=== PATIENT | male | born 1935 | race Caucasian/White ===

== ENCOUNTER 2016-08-29 18:01 | Observation (INO) | payer MEDICARE, BC, OTHER ==
--- NOTE | ~2016-08-29 | HP ---
History And Physical [place] [id number] [facility] [place]. [address] NAME: GUILLERMINA MOON : 37 STATUS : ADM Rob PAT#: [id number] AGE: 81 ADM/REG DATE : 08/29/16 MR#: [id number] REPORT SERV DATE: 08/30/16 DICTATED BY: ENRIQUE TAVERAS DATE: 08/29/16 REPORT STATUS : Draft TRANSCRIBED BY: MODL DATE: 08/29/16 DATE OF ADMISSION: 08/29/2016 CHIEF COMPLAINT: An 81-year-old male presenting with chest pain. HISTORY OF PRESENT ILLNESS: The patient's history was obtained through careful interview with the patient, , and daughter, coupled with review of [facility] medical records. For about three days now the patient has had new onset chest pain, although he has had chronic rare intermittent chest discomfort for which he takes nitroglycerin. This chest pain was more severe than usual. It is described in the middle of his chest, radiating to the back of his shoulders bilaterally and causing a soreness in his left arm as well. He describes the quality as a heaviness as if someone is sitting on his chest, a nine and a half out of 10 severity at its worse. It was not relieved by nitroglycerin prompting him and the family to come into the hospital. He has had no shortness of breath or nausea or vomiting today, but he has suffered some nausea on and off for about three weeks now. Approximately 10 days ago, the patient had developed increasing cough and was placed on outpatient Levaquin for a week. He completed this medication on 08/27/2016. He feels as if the cough has been gradually improving and now is productive of a slight clear sputum. He has had some night sweats, cold sweats, but no fevers or chills. Over the last few weeks, he has had some slight ankle edema, some dyspnea on exertion, orthopnea, paroxysmal nocturnal dyspnea, but none of these seem to be very debilitating. He has noticed some lightheadedness, dizziness. REVIEW OF SYSTEMS: Otherwise, a 14-point review of systems was obtained and was negative. PAST MEDICAL HISTORY: 1. COPD. 2. 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 3. Parkinson disease. 4. Dementia. 5. Coronary artery disease with a catheterization of the heart in 2001 showing moderate disease unamendable to percutaneous intervention and then had a negative stress test in 09/2010. 6. DVT. 7. Mediastinal lymphadenopathy. 8. Elevated cholesterol. PAST SURGICAL HISTORY: History And Physical [address] [address] NAME: GUILLERMINA MOON : 37 STATUS : ADM Rob PAT#: [id number] AGE: 81 ADM/REG DATE : 08/29/16 MR#: [id number] REPORT SERV DATE: 08/30/16 DICTATED BY: ERNIQUE TAVERAS DATE: 08/29/16 REPORT STATUS : Draft TRANSCRIBED BY: RICKY DATE: 08/29/16 1. Hemorrhoidectomy. 2. Left carotid endarterectomy, 2013. ALLERGIES: NO KNOWN DRUG ALLERGIES. SOCIAL HISTORY: Quit smoking in 2000. No alcohol abuse. He is . Lives in [place], [place]. Has one daughter who lives locally. He ambulates with a cane or a walker. He is retired working at an [employer] and also at a [employer] FAMILY HISTORY: Coronary artery disease. CURRENT MEDICATIONS: Include Tylenol, albuterol, atenolol 12.5 mg as needed, Sinemet one tablet p.o. t.i.d., Klonopin 0.5 mg p.o. q.h.s., vitamin B12, Lexapro 10 mg p.o. daily, Flonase, Breo Ellipta inhaled every morning, Mevacor 40 mg p.o. daily, midodrine 5 mg p.o. t.i.d., milk of magnesia, Singulair 10 mg p.o. q.h.s., eye drops, nitroglycerin p.r.n., Prilosec 20 mg p.o. daily, Seroquel 100 mg p.o. daily, nasal spray, Incruse Ellipta inhaled every morning, Coumadin 4 mg at bedtime. PHYSICAL EXAMINATION: VITAL SIGNS: Temperature 98.2, pulse 58, blood pressure 123/65, respiratory rate 24, O2 saturation 97% on room air. GENERAL: A pleasant, cooperative male. No evidence of distress at this time. His chest pain is resolved. HEENT: Pupils equal, round, and reactive to light. No conjunctival pallor. No scleral icterus. Nares are patent. Oropharynx is clear of obstruction. Moist mucous membranes. NECK: Trachea midline. No thyromegaly. LYMPH: No cervical lymphadenopathy. No supraclavicular lymphadenopathy. RESPIRATORY: The patient does have some crackles at the base of his lungs. It is difficult to determine if these are more wet or dry or if they are more consistent with atelectasis versus another pulmonary condition. There are no wheezes, no upper respiratory rhonchi. The patient has a slightly labored respiratory effort it seems. CARDIOVASCULAR: Bradycardic, regular rhythm. No murmurs, rubs, or gallops. The patient has only minimal pitting edema around his ankles in the pedal aspect of his feet bilaterally and symmetrically. ABDOMEN: Soft, nontender, nondistended. Normal bowel sounds auscultated throughout. No hepatosplenomegaly. DERMATOLOGICAL: Warm and dry extremities. No pallor, no cyanosis. PSYCHIATRIC: Normal affect. Good mood. Alert and oriented x3. LABORATORY DATA: INR 2.4, troponin negative. White blood cell count 11.1, hemoglobin 12, hematocrit 37, platelets 301. Sodium 139, potassium 4.7, chloride 104, bicarb 29, BUN 13, creatinine 1.05, glucose 150. STUDIES: 1. Chest x-ray by my own evaluation shows chronic left pleural reaction, chronic fullness of the mediastinum, flattening of the diaphragms consistent with COPD, but nothing acute seems apparent. History And Physical [address] [address] NAME: GUILLERMINA MOON : 37 STATUS : ADM Rob PAT#: [id number] AGE: 81 ADM/REG DATE : 08/29/16 MR#: [id number] REPORT SERV DATE: 08/30/16 DICTATED BY: ENRIQUE TAVERAS DATE: 08/29/16 REPORT STATUS : Draft TRANSCRIBED BY: MODL DATE: 08/29/16 2. EKG by my own evaluation shows sinus bradycardia. ASSESSMENT AND PLAN: 1. Chest pain evaluation. Check a nuclear cardiac stress test. Check an echocardiogram. History of catheterization of the heart in 2001 with moderate disease unamendable to stent placement with a negative stress test in 2010 to follow that up. The patient has therapeutic INR, on Coumadin. Add baby aspirin. 2. Abnormal chest x-ray and chest exam. Check a CT scan of the chest without contrast. The patient has persistent cough. Check brain natriuretic peptide. 3. Parkinson's disease with dementia. 4. Chronic dysphagia. Check a swallow evaluation. Consider the possibility of silent aspiration? 5. History of recurrent DVT with good INR. 6. Chronic obstructive pulmonary disease. Place on duo nebulizers. STACEY/RICKY Enrique Taveras M.D. / [id number] CC: Cece Bartlett M.D.
--- NOTE | ~2016-08-29 | DS ---
Discharge Summary [facility] [address] [place]. [address] NAME: GUILLERMINA MOON : 37 STATUS : DIS Rob PAT#: [id number] AGE: 81 ADM/REG DATE : 08/29/16 MR#: [id number] REPORT SERV DATE: 08/31/16 DICTATED BY: ROBERTO TANG DATE: 08/30/16 REPORT STATUS : Draft TRANSCRIBED BY: MODKarthikeyan DATE: 08/30/16 ADMISSION DATE: 08/29/2016 DISCHARGE DATE: 08/30/2016 REASON FOR ADMISSION: This is an 81-year-old male with a history of CAD, status post heart catheterization in 2001, which showed moderate disease unamenable to percutaneous intervention and a negative stress test in 09/2010, who also has a history of a CVA in 2013, COPD, dementia, and Parkinson disease, had come in with a three-day complaint of chest pain, although the patient does have history of chronic angina. DISCHARGE DIAGNOSES: 1. Chronic angina with moderate coronary artery disease. 2. Chronic obstructive pulmonary disease. 3. Parkinson disease. 4. Recurrent deep vein thrombosis. 5. Cerebrovascular accident. 6. Dementia. 7. Chronic dysphagia. HOSPITAL COURSE: Chronic angina with moderate CAD. The patient had a consult from Dr. Prather with Cardiology, and the patient had a stress test today which showed low risk and then also had an echocardiogram, which would show a normal LVEF and trivial valvular regurg with normal systolic function. The patient currently not having any chest pain. Dr. Prather suggested adding isosorbide mononitrate to the patient's regimen at home, which we are doing. The patient does actually have a history of hypotension and is on midodrine for that and takes atenolol p.r.n. for systolic blood pressure greater than 140. Apparently, they have been advised by their outpatient physicians to try to keep him with some pressure by using the midodrine and then only using the atenolol p.r.n. So therefore, we are adding isosorbide mononitrate. We have provided the patient with instructions to watch his blood pressure closely upon initiation at home and if his blood pressures were going less than 100 systolic, to notify his assistant professor of nursing that he is not tolerating the new medication. DISCHARGE CONDITION: Stable. DISCHARGE MEDICATIONS: 1. Klonopin 0.5 mg p.o. at bedtime. 2. Lovastatin 40 mg p.o. at bedtime. 3. Midodrine 5 mg p.o. t.i.d. 4. Fluticasone two sprays each nostril daily. 5. Singulair 10 mg p.o. at bedtime. 6. Albuterol p.r.n. 7. Breo Ellipta one puff inhaled daily. 8. Sinemet 25/100 mg one tablet p.o. t.i.d. 9. Omeprazole 20 mg p.o. daily. 10.Nitroglycerin sublingual tablets p.r.n. 11.Incruse Ellipta one puff inhaled daily. Discharge Summary [address] [address] NAME: GUILLERMINA MOON : 37 STATUS : DIS Rob PAT#: [id number] AGE: 81 ADM/REG DATE : 08/29/16 MR#: [id number] REPORT SERV DATE: 08/31/16 DICTATED BY: ROBERTO TANG DATE: 08/30/16 REPORT STATUS : Draft TRANSCRIBED BY: RICKY DATE: 08/30/16 12.Coumadin 4 mg p.o. daily. 13.Lexapro 10 mg p.o. daily. 14.Atenolol 12.5 mg p.o. p.r.n. for systolic blood pressure greater than 140. 15.Seroquel 100 mg p.o. daily. 16.Vitamin B12 1000 mcg daily. 17.Isosorbide mononitrate 10 mg p.o. b.i.d. DISCHARGE PLAN: The patient is discharged home. Follow up with his primary care, Alba Little, in one to two weeks and assistant professor of nursing in three to four weeks. DICTATED BY: Roberto Tang APN TDR/RICKY Roberto Tang APN / [id number] CC: Cece Rivera MD
--- NOTE | ~2016-08-29 | CN ---
Consultation Report [facility] [address] [place]. [address] NAME: GUILLERMINA MOON : 37 STATUS : ADM Rob PAT#: [id number] AGE: 81 ADM/REG DATE : 08/29/16 MR#: [id number] REPORT SERV DATE: 08/30/16 DICTATED BY: RAHUL CLIFTON DATE: 08/30/16 REPORT STATUS : Draft TRANSCRIBED BY: MODL DATE: 08/30/16 CONSULTATION DATE OF CONSULTATION: 08/30/2016 REASON FOR CONSULTATION: Angina. PRIMARY MORTGAGE OPERATIONS MANAGER: Dr. Roy. HISTORY OF PRESENT ILLNESS: Mr. Moon is an 81-year-old gentleman with a history of hypertension, COPD, recurrent DVT on Coumadin, chronic stable angina, typically relieved with sublingual nitroglycerin and history of stroke with mild gait disturbance and dysphagia, who presents with symptoms of chest pains in his center of his chest over the past three days. He states that although he gets infrequent occasional anginal pains, they are very readily relieved with use of sublingual nitroglycerin. His pain started about three days ago were much more severe in intensity radiating to his left arm as well as his back and not relieved at all with sublingual nitroglycerin. This prompted him to present to the hospital for further evaluation and care. He has no other complaints today. ALLERGIES: NO KNOWN DRUG ALLERGIES. PAST MEDICAL HISTORY: As above as well as coronary disease (50% to 60% proximal LAD and 80% mid PDA in 2008), status post left carotid endarterectomy in 2013. FAMILY HISTORY: Noncontributory for premature cardiovascular disease. SOCIAL HISTORY: The patient lives at home with family. He functions in a partially dependent manner. He is a former smoker, but denies drinking alcohol or doing drugs. REVIEW OF SYSTEMS: As above, all other systems otherwise negative. PHYSICAL EXAMINATION: VITAL SIGNS: Blood pressure 110/55, pulse 58, temperature 97.9. GENERAL: Age appropriate, mildly disheveled, no acute distress. NEURO: Awake, alert and oriented x3; no focal deficits, appropriate mood. HEENT: Head and neck, normocephalic, atraumatic. Dry mucous membranes. . NECK: No JVD, no carotid bruit. LUNGS: Normal work of breathing. Positive for rales in his bilateral basis. No rhonchi or wheezing. CV: Regular rate and rhythm, 2/6 systolic murmur at the left sternal border, otherwise no rubs or gallops. ABD: Soft, non-tender, non-distended, no rebound or guarding. EXT: Cool, dry, 1+ pulses throughout. Consultation Report [place] [id number] [place]. [address] NAME: GUILLERMINA MOON : 37 STATUS : ADM Rob PAT#: [id number] AGE: 81 ADM/REG DATE : 08/29/16 MR#: [id number] REPORT SERV DATE: 08/30/16 DICTATED BY: RAHUL CLIFTON DATE: 08/30/16 REPORT STATUS : Draft TRANSCRIBED BY: RICKY DATE: 08/30/16 SKIN: Warm, dry and intact; no rash. PERTINENT TEST FINDINGS: Troponin less than 0.02 x2. BNP 23. TSH 1.7. White blood cell count 9.5, hemoglobin 12.2, creatinine 0.9, potassium 4.2, MPI negative in 2010. Echocardiogram with EF of 55% and mild left atrial enlargement in 2008. Angiography was moderate atherosclerosis of the LAD and severe atherosclerosis of the mid PDA as above. IMPRESSION AND PLAN: Mr. Moon is an 81-year-old gentleman with multiple medical problems as detailed above, who presents with worsening angina over the past three days, currently ruled out for myocardial infarction. Accordingly, I recommend proceeding with stress test as well as echocardiogram to determine whether he has had any change in his cardiac function as well as worsening of known coronary atherosclerosis. Otherwise, continuation of his cardiovascular medications without change at this time is recommended. Pending his studies, it may be prudent to up titrate antianginals from a medical standpoint. Further recommendations to follow. KUNAL/RICKY Rahul Clifton MD / [id number] CC: Cece Rivera
[2016-08-29 16:54] LABS: BASOPHILS 0.3 %; BASOPHILS ABSOLUTE 0.03 10/3/uL (0.0-0.16); EOSINOPHILS ABSOLUTE 0.11 10/3/uL (0.0-0.53); ER CBC TAT 0 Hrs 07 Mins; HEMATOCRIT 37.1 % (40.0-51.0); HEMOGLOBIN 12.5 g/dL (13.6-17.8); IMMATURE GRANULOCYTES 0.3 %; IMMATURE GRANULOCYTES ABSOLUTE 0.03 10/3/uL (0.0-0.11); LYMPHOCYTES 15.8 %; LYMPHOCYTES ABSOLUTE 1.76 10/3/uL (0.67-4.30); MEAN CORPUS HGB CONC 33.7 g/dL (32.0-36.0); MEAN CORPUSCULAR HEMOGLOB 29.8 pg (26.0-34.0); MEAN CORPUSCULAR VOLUME 88.3 fL (80-100); MEAN PLATELET VOLUME 9.7 fL (9.2-13.0); MONOCYTES 10.2 %; MONOCYTES ABSOLUTE 1.14 10/3/uL (0.21-1.20); NEUTROPHILS 72.4 %; NEUTROPHILS ABSOLUTE 8.07 10/3/uL (2.02-8.40); PLATELET COUNT 301 10/3/uL (150-400); RBC DISTRIBUTION WIDTH 12.9 % (12.0-16.0); WHITE BLOOD CELLS 11.1 10/3/uL (4.5-10.5)
[2016-08-29 16:55] LABS: MANUAL DIFF NO %
[2016-08-29 17:02] LABS: INTERNATIONAL NORMAL RATI 2.4 UNITS (-); PROTIME (NOT ORD) 26.1 SEC (12.0-14.5)
[2016-08-29 17:03] LABS: PARTIAL THROMBO TIME 41.2 SEC (22.5-37.2)
[2016-08-29 17:09] LABS: BUN (BLOOD UREA NITROGEN) 13 MG/DL (6-23); CALCIUM, SERUM 8.7 MG/DL (8.5-10.4); CHEST PAIN PROFILE TAT 0 Hrs 22 Mins; CHLORIDE, SERUM 104 MMOL/L (96-112); CO2 (CARBON DIOXIDE) 29 MMOL/L (24-34); CREATININE 1.03 MG/DL (0.70-1.30); GFR AFRICAN AMERICAN 79 ML/MIN (>=60); GFR NON AFRICAN AMERICAN 68 ML/MIN (>=60); GLUCOSE, SERUM 150 MG/DL (60-99); POTASSIUM, SERUM 4.7 MMOL/L (3.5-5.3); SODIUM, SERUM 139 MMOL/L (135-148); TROPONIN I <0.02 NG/ML (<0.05)
[~2016-08-29 18:01] MED LIST: ATEN25 PO; AYR SALINE NAS; BREO ELLIPTA INH; CLEAR EYE1 OPH; COUMADIN4 MG PO; EMETROL PO; FLONASE NAS; INCRUSE ELLI62.5 MCG INH; KLONO5 PO; LEXAPRO10 PO; MEVACOR40 MG PO; MOMUD PO; NITROQUICK0.4 MG SL; OCEAN NAS; PRILO PO; PROAMAT5 PO; SEROQUEL1C PO; SIN25 PO; SINGULAIR1 PO; T PO; VENTOLIN HFA INH; VITAMIN B-121000 MC1 SL
[2016-08-30 04:21] LABS: BASOPHILS 0.4 %; BASOPHILS ABSOLUTE 0.04 10/3/uL (0.0-0.16); EOSINOPHILS 1.7 %; EOSINOPHILS ABSOLUTE 0.16 10/3/uL (0.0-0.53); HEMATOCRIT 37.1 % (40.0-51.0); HEMOGLOBIN 12.2 g/dL (13.6-17.8); IMMATURE GRANULOCYTES 0.3 %; IMMATURE GRANULOCYTES ABSOLUTE 0.03 10/3/uL (0.0-0.11); LYMPHOCYTES 21.9 %; LYMPHOCYTES ABSOLUTE 2.07 10/3/uL (0.67-4.30); MEAN CORPUS HGB CONC 32.9 g/dL (32.0-36.0); MEAN CORPUSCULAR HEMOGLOB 29.3 pg (26.0-34.0); MEAN CORPUSCULAR VOLUME 89.2 fL (80-100); MEAN PLATELET VOLUME 9.8 fL (9.2-13.0); MONOCYTES ABSOLUTE 0.95 10/3/uL (0.21-1.20); NEUTROPHILS 65.7 %; NEUTROPHILS ABSOLUTE 6.22 10/3/uL (2.02-8.40); PLATELET COUNT 291 10/3/uL (150-400); RBC DISTRIBUTION WIDTH 12.8 % (12.0-16.0); RED CELL COUNT 4.16 10/6/uL (4.7-6.1); WHITE BLOOD CELLS 9.5 10/3/uL (4.5-10.5)
[2016-08-30 04:30] LABS: MANUAL DIFF NO %
[2016-08-30 04:40] LABS: INTERNATIONAL NORMAL RATI 2.2 UNITS (-); PROTIME (NOT ORD) 24.6 SEC (12.0-14.5)
[2016-08-30 04:41] LABS: PARTIAL THROMBO TIME 41.2 SEC (22.5-37.2)
[2016-08-30 04:52] LABS: A/G RATIO 0.8 (0.7-1.9); ALBUMIN 3.1 G/DL (3.5-5.0); ALKALINE PHOSPHATASE 78 U/L (45-117); CALCIUM, SERUM 8.7 MG/DL (8.5-10.4); CHLORIDE, SERUM 105 MMOL/L (96-112); CO2 (CARBON DIOXIDE) 30 MMOL/L (24-34); GFR AFRICAN AMERICAN 93 ML/MIN (>=60); GFR NON AFRICAN AMERICAN 80 ML/MIN (>=60); GLOBULIN 4.1 G/DL (2.5-4.1); GLUCOSE, SERUM 135 MG/DL (60-99); POTASSIUM, SERUM 4.2 MMOL/L (3.5-5.3); SGOT(AST) 34 U/L (5-40); SGPT(ALT) 18 U/L (5-65); SODIUM, SERUM 141 MMOL/L (135-148); TOTAL BILIRUBIN 0.3 MG/DL (0-1.2); TOTAL PROTEIN 7.2 G/DL (6.0-8.5); TROPONIN I <0.02 NG/ML (<0.05)
[2016-08-30 04:54] LABS: BUN (BLOOD UREA NITROGEN) 17 MG/DL (6-23)
[2016-08-30] MEDS ORDERED: MONOKET (16:22)
== END 2016-08-30 17:00 | disposition home or self-care (01) ==
LOC: ER 18:01 → CDU1 18:48
PROVIDERS: Hospitalist
DX: I25.119 Atherosclerotic heart disease of native coronary artery with unspecified angina pectoris (principal); J44.9 Chronic obstructive pulmonary disease, unspecified; G20 Parkinson's disease; F03.90 Unspecified dementia, unspecified severity, without behavioral disturbance, psychotic disturbance, mood disturbance, and anxiety; I11.0 Hypertensive heart disease with heart failure; I50.9 Heart failure, unspecified; I63.9 Cerebral infarction, unspecified; E78.00 Pure hypercholesterolemia, unspecified; G47.30 Sleep apnea, unspecified; F41.9 Anxiety disorder, unspecified; K21.9 Gastro-esophageal reflux disease without esophagitis; F32.9 Major depressive disorder, single episode, unspecified; Z87.891 Personal history of nicotine dependence; Z79.01 Long term (current) use of anticoagulants; Z79.899 Other long term (current) drug therapy; Z86.718 Personal history of other venous thrombosis and embolism; Z98.890 Other specified postprocedural states
CPT/HCPCS: 71010; 71250; 78452; 80048; 80053; 83735; 83880; 84443; 84484; 85025; 85610; 85730; 87449; 93005; 93017; 94640; 99285; A9270-GY; A9502; C8929; G0378; J0153; Q9957